=== PATIENT | female | born 1980 | race Caucasian/White ===

== ENCOUNTER → 2020-09-09 | Outpatient (CLI) | payer MEDICAID ==
--- NOTE | 2020-09-09 08:39 | MM ---
Reason for exam: screening (asymptomatic). Baseline mammogram. Physical Findings: Nurse did not find any significant physical abnormalities on exam. MG 3D Screening Mammo W/Cad Bilateral CC and MLO view(s) were taken. The breast tissue is heterogeneously dense. This may lower the sensitivity of mammography. No significant new findings when compared with previous films. These results were verbally communicated with the patient and result sheet given to the patient on 09/09/20. ASSESSMENT: Benign, BI-RAD 2 RECOMMENDATION: Routine screening mammogram of both breasts in 1 year.
== END | disposition home or self-care (01) ==
LOC: RADMAMWWP 07:36
PROVIDERS: ATTEND Obstetrics & Gynecology
DX: Z12.31 Encounter for screening mammogram for malignant neoplasm of breast (principal)
CPT/HCPCS: 77063; 77067

== ENCOUNTER → 2022-08-21 | Outpatient (CLI) | payer MEDICAID ==
--- NOTE | 2022-08-24 20:11 | MM ---
Reason for Exam: Screening (asymptomatic). Last mammogram was performed 1 year(s) and 11 month(s) ago. Patient History: Menarche at age 13. First Full-Term at age 27. Hormonal Contraceptives, from age 18 until age 27. Risk Values: Eugenie 5 year model risk: 0.7%. NCI Lifetime model risk: 12.1%. Prior Study Comparison: 09/09/2020 Bilateral Screening Mammogram, [facility]. Tissue Density: The breast tissue is heterogeneously dense. This may lower the sensitivity of mammography. Findings: Analyzed By CAD. Subareolar asymmetric density right cc view is unchanged. No significant change from prior exams. Overall Assessment: Benign, BI-RAD 2 Management: Screening Mammogram of both breasts in 1 year. 1. Patient should continue monthly self breast exams. 2. A clinical breast exam by your physician is recommended on an annual basis. 3. This exam should not preclude additional follow-up of suspicious palpable abnormalities. Electronically signed and approved by: Kristina Sadler M.D. Radiologist
== END | disposition home or self-care (01) ==
LOC: RADMAMWWP 06:57
PROVIDERS: ATTEND Obstetrics & Gynecology
DX: Z12.31 Encounter for screening mammogram for malignant neoplasm of breast (principal)
CPT/HCPCS: 77063; 77067

== ENCOUNTER → 2023-09-28 | Outpatient (CLI) | payer MEDICAID ==
[2023-09-28 09:02] VITALS: BP 121/80; PULSE 68; RESP 16; TEMP 98.2
--- NOTE | 2023-09-28 09:17 | P.HPOB ---
History of Present Illness H&P Date: 09/28/23 Chief Complaint: The patient is here for her routine gynecologic exam and ma mmogram. This is a 43-year-old with an LMP of 09/15/2023. She is here to establish with this office. It has been about 1-1/2 years since her last pelvic exam. Her is status post vasectomy. Menstrual periods are regular every month. She is without gynecologic complaints. Review of Systems The patient has lost 40 pounds over the last year. The weight loss has been intentional and she has done this with diet and exercise. She denies respiratory, cardiac, or G.I. problems. 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 No other history of STDs. History of Any Multi-Drug Resistant Organisms: None Reported Past Surgical History: Section, Cholecystectomy Additional Past Surgical History / Comment(s): section 2 Past Psychological History: Anxiety (Used medications in the past, but not currently needed.) Smoking Status: Never smoker Past Alcohol Use History: Occasional (About 8 beers per week.) Past Drug Use History: None Reported Additional History: She has been since 2006. 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 - Past Family History Mother Family Medical History: No Reported History Additional Family Medical History / Comment(s): Maternal great grandmother had colon cancer. She denies family history of cancer of the breast, uterus, or ovaries. Father Family Medical History: No Reported History Medications and Allergies Home Medications Medication Instructions Recorded Confirmed Type Cholecalciferol [Vitamin D3 (25 50 mcg PO DAILY 09/28/23 09/28/23 History Mcg = 1000 Iu)] Iron 18 mg PO DAILY 09/28/23 09/28/23 History Magnesium 200 mg PO HS 09/28/23 09/28/23 History Multivitamin [Multivitamins Adult 1 each PO DAILY 09/28/23 09/28/23 History Gummies] Allergies Allergy/AdvReac Type Severity Reaction Status Date / Time bee venom protein (honey bee) Allergy Rash/Hives Unverified 09/28/23 08:41 Exam Vital Signs Temp Pulse Resp BP Pulse Ox 09/28/23 08:41 98.2 F 68 16 121/80 100 Intake and Output 09/27/23 09/28/23 09/28/23 22:59 06:59 14:59 Other: Weight 86.183 kg Height 5 feet 7 inches, weight 190 pounds, BMI 29.8. This is a well-developed well-nourished white female who is alert and oriented times 3 in no acute distress. HEENT: Within normal limits. NECK: Supple without mass or thyromegaly. CHEST AND LUNGS: Clear to auscultation. HEART: Regular rate and rhythm. BREASTS: Are without mass or discharge. AXILLARY EXAM: Negative for adenopathy. BACK: Negative for CVA tenderness. ABDOMEN: Soft, nontender, without palpable masses. PELVIC EXAM: Normal external genitalia. Cervix and vagina appear normal. The cervix appears nulliparous. There is no unusual discharge. There is no evidence of prolapse. The uterus is midposition, nongravid size and nontender. There are no palpable adnexal masses or tenderness. RECTAL EXAM: negative for mass or tenderness and is negative for occult blood. EXTREMITIES: Nontender. IMPRESSION: 1. 43-year-old female whose is status post vasectomy, with normal gynecologic exam. PLAN: 1. Pap smear cotest was performed. 2. Self breast awareness was discussed with the patient. We have also discussed symptoms associated with inflammatory breast cancer. 3. Screening mammogram will be done today. 4. Osteoporosis prevention was discussed. I have stressed the importance of adequate calcium, vitamin D and regular exercise. Recommended amounts of calcium and vitamin D were also discussed. 5. She was advised to return in one year for her annual well woman exam.
--- NOTE | 2023-09-29 16:16 | MM ---
Reason for Exam: Screening (asymptomatic). Last mammogram was performed 1 year(s) and 2 month(s) ago. Patient History: Menarche at age 13. First Full-Term at age 27. Patient has history of breast feeding. Hormonal Contraceptives, from age 18 until age 27. Risk Values: Eugenie 5 year model risk: 0.7%. NCI Lifetime model risk: 12.0%. Prior Study Comparison: 09/09/2020 Bilateral Screening Mammogram, [facility]. 08/21/2022 Bilateral MG 3D screening mammo w/cad, [facility]. Tissue Density: There are scattered fibroglandular densities. Findings: Analyzed By CAD. Appears symmetrical and stable. No significant interval change is evident. No suspicious groups of microcalcifications, spiculated or lobular masses, architectural distortion or other secondary signs of malignancy are mammographically apparent. Overall Assessment: Benign, BI-RAD 2 Management: Screening Mammogram of both breasts in 1 year. A negative mammogram report should not preclude additional follow up of suspicious palpable abnormalities. Patient should continue monthly self breast exam. A clinical breast exam by your physician is recommended on an annual basis and results should be correlated with mammographic findings. Electronically signed and approved by: Cb Cuello D.O. Radiologis
== END ==
LOC: WWCWWP 08:24
PROVIDERS: ATTEND Obstetrics & Gynecology
DX: Z12.31 Encounter for screening mammogram for malignant neoplasm of breast (principal); F41.9 Anxiety disorder, unspecified; Z90.49 Acquired absence of other specified parts of digestive tract; Z91.030 Bee allergy status
CPT/HCPCS: 77063; 77067

== ENCOUNTER → 2024-10-17 | Outpatient (CLI) | payer MEDICAID ==
[2024-10-17 08:16] VITALS: BP 107/75; PULSE 71; RESP 17; TEMP 97.9
--- NOTE | 2024-10-17 08:24 | P.HPOB ---
History of Present Illness H&P Date: 10/17/24 Chief Complaint: The patient is here for her routine gynecologic exam and ma mmogram. This is a 44-year-old G2, P2 with an LMP of 10/11/2024. Her is status post vasectomy. Menstrual periods are regular every month. She is without gynecologic complaints. Review of Systems The patient's weight has been stable over the last year. She denies respiratory, cardiac, or G.I. problems. Past Medical History Past Medical History: No Reported History Additional Past Medical History / Comment(s): Past WOUND CARE TECHNICIAN history: HPV on a Pap smear around 2008. No other history of STDs. History of Any Multi-Drug Resistant Organisms: None Reported Past Surgical History: Section, Cholecystectomy Additional Past Surgical History / Comment(s): section 2 Past Psychological History: Anxiety Smoking Status: Never smoker Past Alcohol Use History: Occasional (About 7 beers per week) Past Drug Use History: None Reported Additional History: She has been since 2006. 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 - Past Family History Mother Family Medical History: No Reported History Additional Family Medical History / Comment(s): Maternal great grandmother had colon cancer. She denies family history of cancer of the breast, uterus, or ovaries. Father Family Medical History: No Reported History Medications and Allergies Home Medications Medication Instructions Recorded Confirmed Type Cholecalciferol [Vitamin D3 (25 50 mcg PO DAILY 09/28/23 09/28/23 History Mcg = 1000 Iu)] Iron 18 mg PO DAILY 09/28/23 09/28/23 History Magnesium 200 mg PO HS 09/28/23 09/28/23 History Multivitamin [Multivitamins Adult 1 each PO DAILY 09/28/23 09/28/23 History Gummies] Allergies Allergy/AdvReac Type Severity Reaction Status Date / Time bee venom protein (honey bee) Allergy Rash/Hives Unverified 10/17/24 08:11 Exam Vital Signs Temp Pulse Resp BP Pulse Ox 10/17/24 08:14 97.9 F 71 17 107/75 100 Intake and Output 10/16/24 10/17/24 10/17/24 22:59 06:59 14:59 Other: Weight 86.183 kg Height 5 feet 7 inches, weight 190 pounds, BMI 29.8. This is a well-developed well-nourished white female who is alert and oriented times 3 in no acute distress. HEENT: Within normal limits. NECK: Supple without mass or thyromegaly. CHEST AND LUNGS: Clear to auscultation. HEART: Regular rate and rhythm. BREASTS: Are without mass or discharge. AXILLARY EXAM: Negative for adenopathy. BACK: Negative for CVA tenderness. ABDOMEN: Soft, nontender, without palpable masses. PELVIC EXAM: Normal external genitalia. Cervix and vagina appear normal. There is no unusual discharge. There is no evidence of prolapse. The uterus is midposition, nongravid size and nontender. There are no palpable adnexal masses or tenderness. RECTAL EXAM: negative for mass or tenderness and is negative for occult blood. EXTREMITIES: Nontender. IMPRESSION: 1. 44-year-old gynecologically healthy female whose is status post vasectomy. PLAN: 1. Pap smear was deferred since she had a negative Pap smear cotest on 09/28/2023. 2. Self breast awareness was discussed with the patient. We have also discussed symptoms associated with inflammatory breast cancer. 3. Screening mammogram will be done today. 4. Osteoporosis prevention was discussed. 5. She was advised to return in one year for her annual well woman exam.
--- NOTE | 2024-10-19 15:47 | MM ---
Reason for Exam: Screening (asymptomatic). Last screening mammogram was performed 12 month(s) ago. Patient History: Menarche at age 13. First Full-Term at age 27. Patient has history of breast feeding. Hormonal Contraceptives, from age 18 until age 27. Risk Values: Eugenie 5 year model risk: 0.8%. NCI Lifetime model risk: 11.9%. Prior Study Comparison: 09/09/2020 Bilateral Screening Mammogram, [facility]. 08/21/2022 Bilateral MG 3D screening mammo w/cad, [facility]. 09/28/2023 Bilateral MG 3D screening mammo w/cad, [facility]. Tissue Density: The breasts are heterogeneously dense, which may obscure small masses. Findings: Analyzed By CAD. Asymmetric density subareolar left cc view is unchanged. There is no suspicious group of microcalcifications or new suspicious mass in either breast. Overall Assessment: Benign, BI-RAD 2 Management: Screening Mammogram of both breasts in 1 year. Patient should continue monthly self-breast exams. A clinical breast exam by your physician is recommended on an annual basis. This exam should not preclude additional follow-up of suspicious palpable abnormalities. Note on Eugenie scores and lifetime risk: 1. A Eugenie score greater than 3% is considered moderate risk. If this is the case, consider specialist referral to assess eligibility for a risk reducing agent. 2. If overall lifetime risk for the development of breast cancer is 20% or higher, the patient may qualify for future screening with alternating mammogram and breast MRI. [facility], , 10/19/2024 3:44 PM. Electronically signed and approved by: Kristina Sadler M.D. Radiologist
== END ==
LOC: WWCWWP 07:55
PROVIDERS: ATTEND Obstetrics & Gynecology
DX: Z12.31 Encounter for screening mammogram for malignant neoplasm of breast (principal); R92.8 Other abnormal and inconclusive findings on diagnostic imaging of breast; R92.333 Mammographic heterogeneous density, bilateral breasts; Z91.030 Bee allergy status
CPT/HCPCS: 77063; 77067